=== PATIENT | male | born 1975 | race Two or more races ===

== ENCOUNTER 2016-09-22 21:08 | Emergency (ER) | payer MEDICAID ==
[~2016-09-22] VITALS: Ht 172.7 cm; Wt 86.2 kg
--- NOTE | 2016-09-22 21:19 | NUR ---
BB FAMILY; PT STATES DULL LIKE PAIN 8/10 IN MID EPIGASTRIC AREA SINCE 1700 AFTER EATING. +NAUSEA. PT AOX4 BELARUSIAN SPEAKING, NEPHEW AT BEDSIDE FOR TRANSLATION. RR EVEN AND UNLABORED. NO SOB NOTED. NAD NOTED. NO NVD AT THIS TIME. PT NOT DIAPHORETIC. PT GOWNED AND PLACED ON MONITOR WAITING FOR MD HARRY.
--- NOTE | 2016-09-22 21:29 | NUR ---
ALONSO LEA AT BEDSIDE FOR EVAL.
--- NOTE | 2016-09-22 21:34 | NUR ---
XRAY AT BEDSIDE
[2016-09-22] MEDS ORDERED: ONDANSETRON HCL/PF 4 MG/2 ML VIAL ONE (21:38)
[2016-09-22] MEDS ORDERED: IV NS 0.9% 1,000 ML ONE (21:38)
[2016-09-22] MEDS ORDERED: MORPHINE SULFATE INJ 4 MG/ML DISP.SYRIN ONE (21:38)
[2016-09-22] MEDS ORDERED: IV SET PRIMARY PUMP SET 1 EA INFUS.SET MC ONE (21:38)
[2016-09-22] MEDS: MORPHINE SULFATE INJ 2 MG/ML DISP.SYRIN IV ONE (21:45)
[2016-09-22] MEDS: IV NS 0.9% 1,000 ML BAG IV ONE (21:45)
[2016-09-22] MEDS: ONDANSETRON HCL/PF 4 MG/2 ML VIAL IVP ONE (21:45)
[2016-09-22 21:48] LABS: BASOPHILS # (AUTO) 0.2 /CMM (0.0-0.2); BASOPHILS % (AUTO) 1.1 % (0.0-2.0); EOSINOPHILS # (AUTO) 0.3 /CMM (0.0-0.7); EOSINOPHILS % (AUTO) 2.1 % (0.0-6.0); HEMATOCRIT 40 % (39-51); HEMOGLOBIN 13.6 g/dL (13.5-17.5); LYMPHOCYTES # (AUTO) 3.3 /CMM (0.8-4.8); LYMPHOCYTES % (AUTO) 23.1 % (20.0-44.0); MEAN CORPUSCULAR HEMOGLOBIN 29 PG (26.0-33.0); MEAN CORPUSCULAR HGB CONC 35 g/dl (31.0-36.0); MEAN CORPUSCULAR VOLUME 84 fL (80-96); MONOCYTES # (AUTO) 0.8 /CMM (0.1-1.30); MONOCYTES % (AUTO) 5.9 % (2.0-12.0); NEUTROPHILS # (AUTO) 9.6 /CMM (1.8-8.9); NEUTROPHILS % (AUTO) 67.8 % (43.0-81.0); PLATELET COUNT (AUTO) 213 /CMM (150-450); RDW COEFFICIENT OF VARIATION 13.6 (11.5-15.0); RED BLOOD CELL COUNT(AUTO) 4.69 MIL/uL (4.5-6.0); WHITE BLOOD COUNT (AUTO) 14.2 K/uL (4.3-11.0)
[2016-09-22 21:58] LABS: CALCIUM, SERUM 8.5 mg/dL (8.5-10.1); CARBON DIOXIDE 25 mmol/L (21-32); CHLORIDE 105 mmol/L (98-107); CREATININE 0.9 mg/dL (0.6-1.3); GFR 92 mL/min (>60); GLUCOSE 107 mg/dL (74-106); POTASSIUM 3.7 mmol/L (3.5-5.1); SODIUM SERUM 139 mmol/L (136-145); UREA NITROGEN, BLOOD 16 mg/dL (7-18)
[2016-09-22 22:04] LABS: ALANINE AMINOTRANSFERASE 32 U/L (12-78); ALBUMIN 3.4 g/dL (3.4-5.0); ALKALINE PHOSPHATASE 86 U/L (46-116); ASPARTATE AMINOTRANSFERASE 15 U/L (15-37); BILIRUBIN,DIRECT 0.1 mg/dL (0.0-0.2); BILIRUBIN,TOTAL 0.4 mg/dL (0.2-1.0)
[2016-09-22 22:05] LABS: INR 0.97 (0.87-1.13); PROTHROMBIN TIME 10.4 SECS (9.5-12.7)
[2016-09-22 22:06] LABS: TROPONIN I < 0.017 ng/mL (0.00-0.056)
--- NOTE | 2016-09-22 22:21 | NUR ---
URINE COLLECTED. 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
--- NOTE | 2016-09-22 22:37 | NUR ---
PT RETURNED FROM CT.
[2016-09-22 23:29] LABS: APPEARANCE,URINE CLEAR (CLEAR); BILIRUBIN,URINE NEGATIVE (NEGATIVE); BLOOD, URINE 1+ Ery/uL (NEGATIVE); COLOR,URINE YELLOW (YELLOW); KETONES,URINE NEGATIVE (NEGATIVE); LEUKOCYTE ESTERASE ,URINE 1+ (NEGATIVE); NITRITE, URINE NEGATIVE (NEGATIVE); PROTEIN,URINE NEGATIVE (NEGATIVE); UGLUCOSE NEGATIVE (NEGATIVE); UROBILINOGEN,URINE 0.2 EU/dL (0.2)
[2016-09-22 23:43] LABS: ADD URINE CULTURE YES; BACTERIA,URINE None seen /HPF (None Seen); SQUAMOUS EPITHELIAL CELL,UR Rare /HPF (None Seen)
--- NOTE | 2016-09-22 23:49 | NUR ---
DR. ALEXIS AT BEDSIDE SPEAKING TO PT REGARDING RESULTS.
--- NOTE | 2016-09-22 23:57 | NUR ---
IV removed. Catheter intact and site benign. Pressure and 4x4 applied to site. No bleeding noted. Patient discharged to home in stable condition. Written and verbal after care instructions given. Patient verbalizes understanding of instruction. ambulatory with a steady gait. instructed pt not to drive. pt verbalize instructions. pt accompanied by family
[2016-09-22 23:59] VITALS: BP 138/78
== END 2016-09-23 | disposition home or self-care (01) ==
LOC: ER 21:11
DX: R10.13 Epigastric pain (principal); R10.10 Upper abdominal pain, unspecified; N39.0 Urinary tract infection, site not specified; N45.1 Epididymitis; F17.200 Nicotine dependence, unspecified, uncomplicated
CPT/HCPCS: 36415; 71010; 74176; 80048; 80076; 81001; 84484; 85025; 85730; 93005; 96361; 96374; 96375; 99285; A4606; J2270; J2405; J7030; Z7610; 81000-TC

== ENCOUNTER 2018-10-01 19:12 | Emergency (ER) | payer MEDICAID ==
[~2018-10-01] VITALS: Ht 177.8 cm; Wt 99.8 kg
--- NOTE | 2018-10-01 19:31 | NUR ---
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 DENIES TRAUMA/INJURY. STATES PAIN 02/04. NO OTHER COMPLAINTS AT THIS TIME, NO ACUTE DISTRESS NOTED. FAMILY AT BEDSIDE. READY FOR EVAL.
--- NOTE | 2018-10-01 19:42 | NUR ---
XRAY AT BEDSIDE
[2018-10-01] MEDS ORDERED: IBUPROFEN 600 MG TABLET PO ONE ×2 (19:44→20:00)
--- NOTE | 2018-10-01 19:49 | NUR ---
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
--- NOTE | 2018-10-01 20:27 | NUR ---
Patient discharged to home in stable condition. Written and verbal after care instructions given. Patient verbalizes understanding of instruction.
[2018-10-01 20:28] VITALS: BP 131/87
== END 2018-10-01 20:30 | disposition home or self-care (01) ==
LOC: ER 19:14
DX: S92.192A Other fracture of left talus, initial encounter for closed fracture (principal); R60.0 Localized edema; F17.200 Nicotine dependence, unspecified, uncomplicated; X58.XXXA Exposure to other specified factors, initial encounter; Y93.89 Activity, other specified; Y92.89 Other specified places as the place of occurrence of the external cause; Y99.8 Other external cause status
CPT/HCPCS: 73610-TC; 93971-TC